=== PATIENT | female | born 1990 | race Caucasian/White ===

== ENCOUNTER 2019-04-17 15:53 | Inpatient (IN) | payer OTHER ==
[2019-04-17] MEDS: LACTATED RINGER'S 1,000 ML IV ×2 (16:57→18:49)
[2019-04-17 17:39] LABS: WHITE BLOOD COUNT 13.2 10^3/ul (4.8-10.8)
[2019-04-17 17:39] LABS: ABNORMAL IP MESSAGE 1; HEMATOCRIT 33.2 % (37.0-47.0); HEMOGLOBIN 10.9 g/dl (12.0-16.0); MEAN CORPUSCULAR HEMOGLOBIN 28.9 pg (29.0-33.0); MEAN CORPUSCULAR HGB CONC 32.8 g/dl (32.0-37.0); MEAN CORPUSCULAR VOLUME 88.1 fl (82.0-101.0); MEAN PLATELET VOLUME 13.5 fl (7.4-10.4); PLATELET COUNT 175 10^3/UL (140-415); RED BLOOD COUNT 3.77 10^6/ul (4.20-5.40); RED CELL DISTRIBUTION WIDTH 14.5 % (11.5-14.5)
[2019-04-17 17:45] LABS: POSITIVE DIFF @See below
[2019-04-17 17:46] LABS: ADD MAN DIFF? YES
[2019-04-17 17:51] LABS: ALANINE AMINOTRANSFERASE 24 IU/L (13-69); ALBUMIN 3.3 g/dl (3.3-4.9); ALKALINE PHOSPHATASE 59 IU/L (42-121); ANION GAP 5 (5-13); ASPARTATE AMINO TRANSFERASE 21 IU/L (15-46); BILIRUBIN,INDIRECT 0.5 mg/dl (0-1.1); BILIRUBIN,TOTAL 0.5 mg/dl (0.2-1.3); BLOOD UREA NITROGEN 13 mg/dl (7-20); CALCIUM 8.8 mg/dl (8.4-10.2); CARBON DIOXIDE 25 mmol/L (21-31); CHLORIDE 106 mmol/L (97-110); CREATININE 0.58 mg/dl (0.44-1.00); Estimated GFR > 60 mL/min (>60); GLUCOSE 94 mg/dl (70-220); POTASSIUM 4.2 mmol/L (3.5-5.1); SODIUM 136 mmol/L (135-144); TOTAL PROTEIN 6.6 g/dl (6.1-8.1)
[2019-04-17 18:00] LABS: ADD UMIC YES; UR ASCORBIC ACID 20 mg/dL (NEGATIVE); UR BILIRUBIN (Dip) NEGATIVE (NEGATIVE); UR BLOOD (Dip) NEGATIVE (NEGATIVE); UR CLARITY SLIGHTLY CLOUDY (CLEAR); UR COLOR YELLOW (YELLOW); UR GLUCOSE (Dip) NEGATIVE (NEGATIVE); UR KETONES (Dip) NEGATIVE (NEGATIVE); UR LEUKOCYTE ESTERASE (Dip) TRACE Leu/ul (NEGATIVE); UR NITRITE (Dip) NEGATIVE (NEGATIVE); UR RBC 0 /HPF (0-5); UR SPECIFIC GRAVITY (Dip) 1.018 (1.003-1.030); UR SQUAMOUS EPITHELIAL CELL FEW /HPF (FEW); UR TOTAL PROTEIN (Dip) NEGATIVE (NEGATIVE); UR UROBILINOGEN (Dip) NEGATIVE (NEGATIVE); UR WBC 1 /HPF (0-5)
[2019-04-17 18:26] LABS: ANISOCYTOSIS 1+ (0-0); BAND NEUTROPHILS #M 0.3 10^3/ul (0.0-0.6); BAND NEUTROPHILS % (M) 3 % (0-4); EOSINOPHILS % (M) 2 % (0-7); GIANT THROMBO% (M) 3 % (0-0); LYMPHOCYTES #M 2.1 10^3/ul (0.8-2.9); LYMPHOCYTES % (M) 16 % (15-51); MONOCYTE #M 1.7 10^3/ul (0.3-0.9); MONOCYTES % (M) 13 % (0-11); PLATELET ESTIMATE NORMAL; POIKILOCYTOSIS 2+ (0-0); REACTIVE LYMPHOCYTES #M 0.2 10^3/ul (0.0-0.0); REACTIVE LYMPHOCYTES% (M) 2 % (0-0); SEG NEUT #M 8.6 10^3/ul (1.6-7.5); SEGMENTED NEUTROPHILS (M) % 65 % (39-77); SMUDGE%M 55 % (0-0)
[2019-04-17] MEDS: CEFAZOLIN 2 GM/50 ML (PMX) 50 ML IVPB (20:09)
[2019-04-17] MEDS ORDERED: CEFAZOLIN 2 GM/50 ML (PMX) 50 ML IVPB (22:00)
[2019-04-18] MEDS: LACTATED RINGER'S 1,000 ML IV ×2 (00:35→11:52)
[2019-04-18] MEDS: CEFAZOLIN 2 GM/50 ML (PMX) 50 ML IVPB ×2 (04:04→11:52)
[2019-04-18 06:54] LABS: ADD MAN DIFF? NO
[2019-04-18 06:57] LABS: WHITE BLOOD COUNT 10.7 10^3/ul (4.8-10.8)
[2019-04-18 06:57] LABS: ABNORMAL IP MESSAGE 1; BASOPHIL # 0.1 10^3/ul (0.0-0.1); BASOPHILS % 0.5 % (0.0-2.0); EOSINOPHILS # 0.4 10^3/ul (0.0-0.5); EOSINOPHILS % 4.1 % (0.0-7.0); HEMATOCRIT 33.8 % (37.0-47.0); HEMOGLOBIN 11.3 g/dl (12.0-16.0); LYMPHOCYTES % 19.1 % (15.0-51.0); MEAN CORPUSCULAR HEMOGLOBIN 29.6 pg (29.0-33.0); MEAN CORPUSCULAR HGB CONC 33.4 g/dl (32.0-37.0); MEAN CORPUSCULAR VOLUME 88.5 fl (82.0-101.0); MEAN PLATELET VOLUME 13.9 fl (7.4-10.4); MONOCYTE # 1.5 10^3/ul (0.3-0.9); MONOCYTES % 13.8 % (0.0-11.0); NEUTROPHIL # 6.6 10^3/ul (1.6-7.5); NEUTROPHILS % 61.8 % (39.0-77.0); PLATELET COUNT 169 10^3/UL (140-415); RED BLOOD COUNT 3.82 10^6/ul (4.20-5.40); RED CELL DISTRIBUTION WIDTH 14.7 % (11.5-14.5)
[2019-04-18 07:08] LABS: POSITIVE DIFF @See below
[2019-04-18] MEDS: PRENATAL VITAMIN PO (11:55)
== END 2019-04-18 12:45 | disposition home or self-care (01) | DRG 833 ==
LOC: OBT 15:53 → L-D 15:53 → OBT 18:35 → L-D 18:35
DX: O23.43 Unspecified infection of urinary tract in pregnancy, third trimester (principal); Z3A.28 28 weeks gestation of pregnancy; E86.0 Dehydration
CPT/HCPCS: 76815; 76817; 76818; 80053; 81001; 85025; 87086; 96360; 96361

== ENCOUNTER 2019-05-26 14:22 | Outpatient (CLI) | payer OTHER ==
[2019-05-26 16:21] LABS: ADD MAN DIFF? NO
[2019-05-26 16:27] LABS: WHITE BLOOD COUNT 11.5 10^3/ul (4.8-10.8)
[2019-05-26 16:27] LABS: ABNORMAL IP MESSAGE 1; BASOPHILS % 0.3 % (0.0-2.0); EOSINOPHILS # 0.3 10^3/ul (0.0-0.5); EOSINOPHILS % 2.4 % (0.0-7.0); HEMATOCRIT 35.8 % (37.0-47.0); HEMOGLOBIN 11.8 g/dl (12.0-16.0); LYMPHOCYTES # 1.9 10^3/ul (0.8-2.9); LYMPHOCYTES % 16.6 % (15.0-51.0); MEAN CORPUSCULAR HEMOGLOBIN 29.6 pg (29.0-33.0); MEAN CORPUSCULAR VOLUME 89.7 fl (82.0-101.0); MEAN PLATELET VOLUME 13.1 fl (7.4-10.4); MONOCYTE # 1.3 10^3/ul (0.3-0.9); MONOCYTES % 11.5 % (0.0-11.0); NEUTROPHIL # 7.9 10^3/ul (1.6-7.5); NEUTROPHILS % 68.8 % (39.0-77.0); PLATELET COUNT 176 10^3/UL (140-415); RED BLOOD COUNT 3.99 10^6/ul (4.20-5.40)
[2019-05-26 16:29] LABS: POSITIVE DIFF @See below
[2019-05-26 16:44] LABS: ADD UMIC YES; UR ASCORBIC ACID NEGATIVE (NEGATIVE); UR BACTERIA FEW /HPF (NONE SEEN); UR BILIRUBIN (Dip) NEGATIVE (NEGATIVE); UR BLOOD (Dip) NEGATIVE (NEGATIVE); UR CLARITY CLOUDY (CLEAR); UR COLOR YELLOW (YELLOW); UR GLUCOSE (Dip) NEGATIVE (NEGATIVE); UR KETONES (Dip) NEGATIVE (NEGATIVE); UR LEUKOCYTE ESTERASE (Dip) 3+ Leu/ul (NEGATIVE); UR NITRITE (Dip) NEGATIVE (NEGATIVE); UR RBC 1 /HPF (0-5); UR SPECIFIC GRAVITY (Dip) 1.026 (1.003-1.030); UR SQUAMOUS EPITHELIAL CELL MANY /HPF (FEW); UR TOTAL PROTEIN (Dip) NEGATIVE (NEGATIVE); UR UROBILINOGEN (Dip) NEGATIVE (NEGATIVE); UR WBC 9 /HPF (0-5)
== END 2019-05-26 20:40 | disposition home or self-care (01) ==
LOC: OBT 14:22 → L-D 14:24 → OBT 20:40
DX: O26.893 Other specified pregnancy related conditions, third trimester (principal); R10.2 Pelvic and perineal pain; Z3A.35 35 weeks gestation of pregnancy
CPT/HCPCS: 76815; 76818; 81001; 85025; 86850; 86870; 86900; 86901; 87086

== ENCOUNTER 2019-06-16 16:35 | Outpatient (CLI) | payer OTHER ==
[2019-06-16 21:40] LABS: ADD UMIC YES; UR ASCORBIC ACID 20 mg/dL (NEGATIVE); UR BILIRUBIN (Dip) NEGATIVE (NEGATIVE); UR BLOOD (Dip) NEGATIVE (NEGATIVE); UR CALCIUM OXALATE CRYSTAL MODERATE /HPF (NONE SEEN); UR CLARITY CLOUDY (CLEAR); UR COLOR YELLOW (YELLOW); UR GLUCOSE (Dip) NEGATIVE (NEGATIVE); UR KETONES (Dip) NEGATIVE (NEGATIVE); UR LEUKOCYTE ESTERASE (Dip) 1+ Leu/ul (NEGATIVE); UR MUCUS FEW /HPF (NONE SEEN); UR NITRITE (Dip) NEGATIVE (NEGATIVE); UR RBC 2 /HPF (0-5); UR SPECIFIC GRAVITY (Dip) 1.031 (1.003-1.030); UR SQUAMOUS EPITHELIAL CELL MANY /HPF (FEW); UR TOTAL PROTEIN (Dip) 1+ mg/dl (NEGATIVE); UR UROBILINOGEN (Dip) 1+ mg/dL (NEGATIVE); UR WBC 7 /HPF (0-5)
== END 2019-06-16 22:02 | disposition home or self-care (01) ==
LOC: OBT 16:35 → L-D 16:37 → OBT 22:02
DX: O62.9 Abnormality of forces of labor, unspecified (principal); Z3A.36 36 weeks gestation of pregnancy
CPT/HCPCS: 76815; 76818; 81001

== ENCOUNTER 2019-06-22 23:00 | Inpatient (IN) | payer OTHER ==
[2019-06-23] MEDS ORDERED: LACTATED RINGER'S 1,000 ML IV (00:11)
[2019-06-23] MEDS ORDERED: OXYTOCIN 30 UNITS/LR 500 ML IV ×2 (00:30→21:00)
[2019-06-23] MEDS ORDERED: IBUPROFEN 600 MG TAB PO (00:30)
[2019-06-23] MEDS ORDERED: CARBOPROST 250 MCG INJ IM ×2 (00:30→21:00)
[2019-06-23] MEDS ORDERED: METHYLERGONOVINE 0.2 MG INJ IM ×2 (00:30→21:00)
[2019-06-23] MEDS ORDERED: MISOPROSTOL 200 MCG TAB PR ×2 (00:30→21:00)
[2019-06-23 00:43] LABS: ADD MAN DIFF? NO
[2019-06-23 00:44] LABS: ABNORMAL IP MESSAGE 1; BASOPHILS % 0.2 % (0.0-2.0); EOSINOPHILS # 0.1 10^3/ul (0.0-0.5); EOSINOPHILS % 1.1 % (0.0-7.0); HEMATOCRIT 36.2 % (37.0-47.0); LYMPHOCYTES % 15.7 % (15.0-51.0); MEAN CORPUSCULAR HEMOGLOBIN 29.9 pg (29.0-33.0); MEAN CORPUSCULAR HGB CONC 33.1 g/dl (32.0-37.0); MEAN PLATELET VOLUME 13.4 fl (7.4-10.4); MONOCYTE # 1.2 10^3/ul (0.3-0.9); MONOCYTES % 9.1 % (0.0-11.0); NEUTROPHIL # 9.3 10^3/ul (1.6-7.5); NEUTROPHILS % 73.3 % (39.0-77.0); PLATELET COUNT 185 10^3/UL (140-415); RED BLOOD COUNT 4.02 10^6/ul (4.20-5.40); RED CELL DISTRIBUTION WIDTH 14.1 % (11.5-14.5)
[2019-06-23 00:44] LABS: WHITE BLOOD COUNT 12.7 10^3/ul (4.8-10.8)
[2019-06-23 00:47] LABS: POSITIVE DIFF @See below
[2019-06-23] MEDS: LACTATED RINGER'S 1,000 ML IV ×4 (00:57→18:31)
[2019-06-23] MEDS: AMPICILLIN 2 GM/NS (PMX) 100 ML IV (00:57)
[2019-06-23 01:08] LABS: INR 0.93; PROTIME 12.6 Sec (11.9-14.9)
[2019-06-23 01:09] LABS: PARTIAL THROMBOPLASTIN TIME 27.4 Sec (23.0-35.0)
[2019-06-23] MEDS: MISOPROSTOL 50 MCG CAPSULE PO ×6 (01:45→21:00)
[2019-06-23 04:15] LABS: AMPHETAMINE/METHAMPHETAMINE Negative (NEGATIVE); BARBITURATES Negative (NEGATIVE); BENZODIAZEPINES Negative (NEGATIVE); CANNABINOIDS Negative (NEGATIVE); COCAINE Negative (NEGATIVE); OPIATES Negative (NEGATIVE)
[2019-06-23] MEDS: AMPICILLIN 1 GM/NS (PMX) 50 ML IV ×7 (04:58→23:41)
[2019-06-23] MEDS: OXYTOCIN 30 UNITS/LR 500 ML IV ×3 (07:55→21:01)
[2019-06-23 15:37] LABS: RAPID PLASMA REAGIN NONREACTIVE (NR)
[2019-06-23] MEDS: BUTORPHANOL 2 MG INJ IV (16:13)
[2019-06-23] MEDS ORDERED: FENTAnyl 2MCG/ML-ROPIV 0.2% 100 ML BAG EPI (17:30)
[2019-06-23] MEDS ORDERED: ONDANSETRON 4 MG INJ IV ×2 (17:30→21:00)
[2019-06-23] MEDS ORDERED: NALOXONE (0.4 MG/ML) INJ IV (17:30)
[2019-06-23] MEDS ORDERED: KETOROLAC 30 MG INJ IV (17:30)
[2019-06-23] MEDS ORDERED: HYDROmorphONE 0.5 MG/0.5 ML SYG IV ×2 (17:30)
[2019-06-23] MEDS ORDERED: DIPHENHYDRAMINE 50 MG INJ IV (17:30)
[2019-06-23] MEDS ORDERED: LANOLIN HPA 1 PKT TOP (21:00)
[2019-06-23] MEDS ORDERED: DIPHENHYDRAMINE 25 MG CAP PO (21:00)
[2019-06-23] MEDS ORDERED: NA PHOSPHATE/BIPHOS 133 ML ENEMA PR (21:00)
[2019-06-23] MEDS ORDERED: METHYLERGONOVINE 0.2 MG TAB PO (21:00)
[2019-06-23] MEDS ORDERED: MAGNESIUM HYDROXIDE 30ML CUP PO (21:00)
[2019-06-23] MEDS: SENNA/DOCUSATE NA (8.6MG/50MG) TAB PO (21:00)
[2019-06-23] MEDS ORDERED: ZOLPIDEM 5 MG TAB PO (21:00)
[2019-06-23] MEDS: LACTATED RINGER'S 1,000 ML IV* (21:00)
[2019-06-23] MEDS: LIDOCAINE 1% (MPF) 30 ML INJ INJ (21:01)
[2019-06-24] MEDS: IBUPROFEN 800 MG TAB PO ×3 (00:24→21:18)
[2019-06-24] MEDS: WITCH HAZEL/GLYCERIN PAD PR (00:25)
[2019-06-24] MEDS: BENZOCAINE 20% 56 ML SPRAY TOP (00:25)
[2019-06-24] MEDS: MISOPROSTOL 50 MCG CAPSULE PO ×2 (00:38→04:16)
[2019-06-24] MEDS: OXYTOCIN 30 UNITS/LR 500 ML IV (00:40)
[2019-06-24] MEDS: LACTATED RINGER'S 1,000 ML IV* ×3 (05:00→21:00)
[2019-06-24] MEDS: HYDROCODONE/APAP (5/325) TAB PO ×2 (05:15→13:19)
[2019-06-24 05:22] LABS: ADD MAN DIFF? NO
[2019-06-24 05:27] LABS: ABNORMAL IP MESSAGE 1; BASOPHILS % 0.2 % (0.0-2.0); EOSINOPHILS # 0.1 10^3/ul (0.0-0.5); EOSINOPHILS % 0.4 % (0.0-7.0); HEMATOCRIT 35.6 % (37.0-47.0); HEMOGLOBIN 11.7 g/dl (12.0-16.0); LYMPHOCYTES # 2.2 10^3/ul (0.8-2.9); LYMPHOCYTES % 13.1 % (15.0-51.0); MEAN CORPUSCULAR HEMOGLOBIN 29.6 pg (29.0-33.0); MEAN CORPUSCULAR HGB CONC 32.9 g/dl (32.0-37.0); MEAN CORPUSCULAR VOLUME 90.1 fl (82.0-101.0); MEAN PLATELET VOLUME 13.9 fl (7.4-10.4); MONOCYTE # 1.8 10^3/ul (0.3-0.9); MONOCYTES % 11.2 % (0.0-11.0); NEUTROPHIL # 12.3 10^3/ul (1.6-7.5); NEUTROPHILS % 74.7 % (39.0-77.0); PLATELET COUNT 155 10^3/UL (140-415); RED BLOOD COUNT 3.95 10^6/ul (4.20-5.40); RED CELL DISTRIBUTION WIDTH 13.9 % (11.5-14.5)
[2019-06-24 05:27] LABS: WHITE BLOOD COUNT 16.4 10^3/ul (4.8-10.8)
[2019-06-24 05:55] LABS: POSITIVE DIFF @See below
[2019-06-24] MEDS: SENNA/DOCUSATE NA (8.6MG/50MG) TAB PO ×2 (09:00→21:19)
[2019-06-24 18:08] LABS: RHOGAM PROFILE 1 1
[2019-06-24] MEDS: MAGNESIUM HYDROXIDE 30ML CUP PO (20:00)
[2019-06-24] MEDS: BISACODYL 10 MG SUPP PR (20:00)
[2019-06-25] MEDS: HYDROCODONE/APAP (5/325) TAB PO ×4 (03:09→23:12)
[2019-06-25] MEDS: LACTATED RINGER'S 1,000 ML IV* ×2 (05:00→09:40)
[2019-06-25] MEDS: IBUPROFEN 800 MG TAB PO ×3 (07:59→23:12)
[2019-06-25] MEDS: SENNA/DOCUSATE NA (8.6MG/50MG) TAB PO ×2 (09:05→23:12)
[2019-06-25] MEDS: MEASLES,MUMPS,RUBELLA VACCINE INJ SC* (09:39)
[2019-06-25] MEDS: VARICELLA VACCINE LIVE/PF 1,350 UNIT/0.5 ML ML SC* (09:40)
[2019-06-25] MEDS: DIPHTH/TET/ACEL PERTUSS (ADULT) 0.5 ML VIAL IM* (16:53)
== END 2019-06-25 23:30 | disposition home or self-care (01) | DRG 807 ==
LOC: OBT 23:00 → L-D 23:08 → MS1 06-23 23:05
PROVIDERS: Obstetrics & Gynecology
PROC: 4A1HXCZ Monitoring of Products of Conception, Cardiac Rate, External Approach (ICD-10-PCS; 2019-06-22)
PROC: 10H073Z Insertion of Monitoring Electrode into Products of Conception, Via Natural or Artificial Opening (ICD-10-PCS; 2019-06-22)
PROC: 4A1H74Z Monitoring of Products of Conception, Cardiac Electrical Activity, Via Natural or Artificial Opening (ICD-10-PCS; 2019-06-22)
PROC: 10H07YZ Insertion of Other Device into Products of Conception, Via Natural or Artificial Opening (ICD-10-PCS; 2019-06-22)
PROC: 10E0XZZ Delivery of Products of Conception, External Approach (ICD-10-PCS; principal; 2019-06-23)
PROC: 0HQ9XZZ Repair Perineum Skin, External Approach (ICD-10-PCS; 2019-06-23)
PROC: 3E0334Z Introduction of Serum, Toxoid and Vaccine into Peripheral Vein, Percutaneous Approach (ICD-10-PCS; 2019-06-24)
PROC: 3E0234Z Introduction of Serum, Toxoid and Vaccine into Muscle, Percutaneous Approach (ICD-10-PCS; 2019-06-25)
DX: O70.0 First degree perineal laceration during delivery (principal); Z37.0 Single live birth; Z3A.37 37 weeks gestation of pregnancy; Z87.74 Personal history of (corrected) congenital malformations of heart and circulatory system; Z23 Encounter for immunization; Z29.13 Encounter for prophylactic Rho(D) immune globulin
CPT/HCPCS: 62322; 76815; 80307; 85025; 85610; 85730; 86592; 86850; 86870; 86885; 86900; 86901; 90715; 90716